=== PATIENT | male | born 1950 | race Caucasian/White ===

== ENCOUNTER 2016-09-06 15:21 | Emergency (ER) | payer MEDICARE, MEDICAID ==
[~2016-09-06] VITALS: Ht 182.9 cm; Wt 75.0 kg
[2016-09-06 15:27] VITALS: BP 129/107; PULSE 99; TEMP 98.5
[2016-09-06] MEDS ORDERED: BLOOD PRESSURE (15:29)
[2016-09-06] MEDS ORDERED: PEN-VEE K500 MG PO (16:01)
[2016-09-06] MEDS ORDERED: NORCO 325 MG-51 TAB PO (16:01)
== END 2016-09-06 16:09 | disposition home or self-care (01) ==
LOC: COL.ER 15:21
DX: K04.7 Periapical abscess without sinus (principal); K08.89 Other specified disorders of teeth and supporting structures; I10 Essential (primary) hypertension; F17.210 Nicotine dependence, cigarettes, uncomplicated

== ENCOUNTER 2016-10-04 13:57 | Emergency (ER) | payer MEDICARE, MEDICAID ==
[~2016-10-04] VITALS: Ht 182.9 cm; Wt 80.9 kg
[~2016-10-04 13:57] MED LIST: BLOOD PRESSURE; NORCO 325 MG-51 TAB PO; PEN-VEE K500 MG PO
[2016-10-04 15:21] LABS: BASO % 0.3 % (0.0-2.0); EOS % 0.3 % (0-4.0); GRAN # 6.7 (1.4-6.5); GRAN % 73.2 % (42.2-75.2); HEMATOCRIT 43.2 % (42.0-52.0); HEMOGLOBIN 14.8 g/dl (13.5-18.0); LYMPH # 1.3 (1.2-3.4); LYMPH % 14.1 % (20.0-51.0); MEAN CELL VOLUME 94 fl (80.0-100.0); MEAN CORPUSCULAR HEMOGLOBIN 32 pg (27.0-31.0); MEAN CORPUSCULAR HGB CONC 34 g/dl (33.0-37.0); MEAN PLATELET VOLUME 9.5 fl (7.4-10.4); MONO # 1.1 (0.1-0.6); MONO % 11.6 % (1.7-9.3); PLATELET COUNT 283 K/mm3 (130-400); RED BLOOD COUNT 4.59 M/mm3 (4.20-5.60); WHITE BLOOD COUNT 9.2 K/mm3 (4.8-10.8)
[2016-10-04 15:44] LABS: ADJUSTED CALCIUM 9.9 mg/dL (8.4-10.2); ALANINE AMINOTRANSFERASE 43 U/L (21-72); ALBUMIN 4.3 gm/dL (3.5-5.0); ALKALINE PHOSPHATASE 114 U/L (50-136); ANION GAP 14 mmol/L (7-16); BLOOD UREA NITROGEN 17 mg/dL (9-20); CALCIUM 10.1 mg/dL (8.4-10.2); CARBON DIOXIDE 40 mmol/L (22-30); CREATININE, serum 0.75 mg/dL (0.66-1.25); GLUCOSE 139 mg/dL (74-106); LIPASE 69 U/L (23-300); SODIUM 135 mmol/L (137-145); TOTAL PROTEIN 8.4 gm/dL (6.4-8.2)
[2016-10-04 15:52] LABS: INR 1.3 (0.8-3.0); PROTHROMBIN TIME 14.9 SECONDS (9.7-12.8)
[2016-10-04 15:53] LABS: CHLORIDE 81 mmol/L (98-107); POTASSIUM 2.9 mmol/L (3.4-5.0)
[2016-10-04 15:58] LABS: TROPONIN-I < 0.012 ng/mL (0.000-0.034)
[2016-10-04 16:29] LABS: pH GASTRIC CONTENTS 1
[2016-10-04 18:49] VITALS: BP 129/98; PULSE 79; TEMP 98.3
== END 2016-10-04 18:20 | disposition short-term general hospital (02) ==
LOC: COL.ER 13:57
PROVIDERS: Emergency Medicine
DX: K92.0 Hematemesis (principal); K92.2 Gastrointestinal hemorrhage, unspecified; R00.0 Tachycardia, unspecified; E87.6 Hypokalemia; I10 Essential (primary) hypertension; F17.210 Nicotine dependence, cigarettes, uncomplicated
CPT/HCPCS: C9113; J0696; J2354; J2405; J2550; J3480; J7030; J7040; Q9967

== ENCOUNTER 2016-10-24 16:51 | Inpatient (IN) | payer MEDICARE, MEDICAID ==
[2016-10-24] VITALS (115 sets, daily range): BP systolic 117–122; BP diastolic 74–78; PULSE 78–87; TEMP 97.7–97.9; O2SAT 82–100
[~2016-10-24] VITALS: Ht 182.9 cm; Wt 77.1 kg
[2016-10-24 17:18] LABS: BASO % 0.3 % (0.0-2.0); EOS % 0.1 % (0-4.0); GRAN # 6.6 (1.4-6.5); GRAN % 72.3 % (42.2-75.2); HEMATOCRIT 45.5 % (42.0-52.0); HEMOGLOBIN 15.2 g/dl (13.5-18.0); LYMPH # 1.4 (1.2-3.4); LYMPH % 15.1 % (20.0-51.0); MEAN CELL VOLUME 92 fl (80.0-100.0); MEAN CORPUSCULAR HEMOGLOBIN 31 pg (27.0-31.0); MEAN CORPUSCULAR HGB CONC 33 g/dl (33.0-37.0); MEAN PLATELET VOLUME 10.3 fl (7.4-10.4); MONO # 1.1 (0.1-0.6); MONO % 11.9 % (1.7-9.3); PLATELET COUNT 267 K/mm3 (130-400); RED BLOOD COUNT 4.93 M/mm3 (4.20-5.60); REDCELL DISTRIBUTION WIDTH-CV 12.4 % (11.5-14.5); WHITE BLOOD COUNT 9.1 K/mm3 (4.8-10.8)
[2016-10-24 17:22] LABS: INR 1.5 (0.8-3.0); PROTHROMBIN TIME 16.5 SECONDS (9.7-12.8)
[2016-10-24 17:28] LABS: BLOOD UREA NITROGEN 52 mg/dL (9-20); GLUCOSE 144 mg/dL (74-106); SODIUM 132 mmol/L (137-145)
[2016-10-24 17:29] LABS: ADJUSTED CALCIUM 8.8 mg/dL (8.4-10.2); ALANINE AMINOTRANSFERASE 30 U/L (21-72); ALBUMIN 4.3 gm/dL (3.5-5.0); ALKALINE PHOSPHATASE 118 U/L (50-136); BILIRUBIN,TOTAL 1.1 mg/dL (0.0-1.0); LIPASE 134 U/L (23-300); MAGNESIUM 2.2 mg/dL (1.6-2.3)
[2016-10-24 17:33] LABS: CHLORIDE 54 mmol/L (98-107); POTASSIUM 2.3 mmol/L (3.4-5.0)
[2016-10-24 17:36] LABS: ANION GAP 24 mmol/L (7-16); CARBON DIOXIDE 54 mmol/L (22-30)
[2016-10-24 18:05] LABS: VENOUS BLOOD GAS SAO2 48.9 % (60-80)
[2016-10-24 18:06] LABS: VENOUS BLOOD GAS SITE VENIPUNCTURE
[2016-10-24 18:16] LABS: POTASSIUM 2.1 mmol/L (3.4-5.0)
[2016-10-24] MEDS ORDERED: IPRATROPIUM BROM3 M1 IH (18:34)
[2016-10-24] MEDS ORDERED: PROTONIX 40MG T40 MG PO (18:35)
[2016-10-24] MEDS ORDERED: MULTIPLE VITAMI1 CAP PO (18:35)
[2016-10-24] MEDS ORDERED: FOLIC ACID 11 MG/TA1 PO (18:35)
[2016-10-24] MEDS ORDERED: NATURE'S BLEND100 M2 PO (18:36)
[2016-10-24 18:44] LABS: SALICYLATE < 1.0 mg/dL
[2016-10-24 19:39] LABS: PH 5 (5-8); SQUAMOUS EPITHELIAL 0-2 /hpf; URINE APPEARANCE Cloudy; URINE BACTERIA Rare /hpf; URINE BILIRUBIN Negative (NEGATIVE); URINE BLOOD 1+ (NEGATIVE); URINE COLOR Amber; URINE GLUCOSE Negative (NEGATIVE); URINE KETONE Negative (NEGATIVE)
[2016-10-24 19:56] LABS: PHOSPHOROUS 5.8 mg/dL (2.5-4.5)
[2016-10-24 20:01] LABS: AMPHETAMINE URINE NEGATIVE; BARBITURATES URINE NEGATIVE; BENZODIAZEPINES URINE NEGATIVE; BUPRENORPHINE URINE NEGATIVE; METHADONE URINE NEGATIVE; OPIATES URINE NEGATIVE; OXYCODONE URINE NEGATIVE; PHENCYCLIDINE URINE NEGATIVE; PROPOXYPHENE URINE NEGATIVE; THC CANNABINOIDS URINE NEGATIVE
[2016-10-24 20:04] LABS: PHOSPHOROUS 5.8 mg/dL (2.5-4.5)
[2016-10-24] MEDS ORDERED: PHENERGAN 25 TA25 MG PO ×2 (21:17)
[2016-10-24] MEDS ORDERED: ZOFRAN 4MG T4 MG/TAB PO (21:18)
[2016-10-25] VITALS (422 sets, daily range): BP systolic 97–123; BP diastolic 50–70; PULSE 67–75; TEMP 97.1–98.5; O2SAT 78–100
[2016-10-25 05:54] LABS: BASO % 0.5 % (0.0-2.0); EOS # 0.1 (0.0-0.7); EOS % 1.5 % (0-4.0); GRAN # 5.1 (1.4-6.5); LYMPH # 1.6 (1.2-3.4); LYMPH % 20.1 % (20.0-51.0); MEAN CELL VOLUME 94 fl (80.0-100.0); MEAN CORPUSCULAR HGB CONC 33 g/dl (33.0-37.0); MEAN PLATELET VOLUME 11.4 fl (7.4-10.4); MONO % 12.6 % (1.7-9.3); RED BLOOD COUNT 3.87 M/mm3 (4.20-5.60); REDCELL DISTRIBUTION WIDTH-CV 12.6 % (11.5-14.5); WHITE BLOOD COUNT 7.8 K/mm3 (4.8-10.8)
[2016-10-25 05:58] LABS: HEMATOCRIT 36.2 % (42.0-52.0); MEAN CORPUSCULAR HEMOGLOBIN 31 pg (27.0-31.0); PLATELET COUNT 155 K/mm3 (130-400)
[2016-10-25 06:07] LABS: CALCIUM 6.8 mg/dL (8.4-10.2); CREATININE, serum 1.43 mg/dL (0.66-1.25); POTASSIUM 3.2 mmol/L (3.4-5.0)
[2016-10-25 07:27] LABS: VENOUS BLOOD GAS BE 16.7 (-4-4); VENOUS BLOOD GAS SAO2 75.9 % (60-80)
[2016-10-25 07:28] LABS: VENOUS BLOOD GAS SITE VENIPUNCTURE
[2016-10-25 07:42] LABS: POTASSIUM 2.5 mmol/L (3.4-5.0)
[2016-10-25 09:22] LABS: MAGNESIUM 2.5 mg/dL (1.6-2.3)
[2016-10-26 03:43] VITALS: BP 107/66; PULSE 81; TEMP 98.1
[2016-10-26 07:18] LABS: BASO % 0.4 % (0.0-2.0); EOS # 0.2 (0.0-0.7); EOS % 2.1 % (0-4.0); GRAN # 5.2 (1.4-6.5); GRAN % 69.3 % (42.2-75.2); INR 1.3 (0.8-3.0); LYMPH # 1.3 (1.2-3.4); LYMPH % 17.7 % (20.0-51.0); MEAN CELL VOLUME 95 fl (80.0-100.0); MEAN CORPUSCULAR HGB CONC 32 g/dl (33.0-37.0); MEAN PLATELET VOLUME 10.6 fl (7.4-10.4); MONO # 0.7 (0.1-0.6); MONO % 9.8 % (1.7-9.3); PLATELET COUNT 172 K/mm3 (130-400); PROTHROMBIN TIME 14.3 SECONDS (9.7-12.8); RED BLOOD COUNT 3.79 M/mm3 (4.20-5.60); REDCELL DISTRIBUTION WIDTH-CV 12.5 % (11.5-14.5); WHITE BLOOD COUNT 7.5 K/mm3 (4.8-10.8)
[2016-10-26 07:32] LABS: CALCIUM 7.3 mg/dL (8.4-10.2); CREATININE, serum 0.78 mg/dL (0.66-1.25); MAGNESIUM 2.2 mg/dL (1.6-2.3); POTASSIUM 3.8 mmol/L (3.4-5.0)
[2016-10-26 07:47] VITALS: BP 105/68; PULSE 79; TEMP 98.2
[2016-10-26 07:49] LABS: HEMATOCRIT 35.9 % (42.0-52.0); HEMOGLOBIN 11.5 g/dl (13.5-18.0); MEAN CORPUSCULAR HEMOGLOBIN 30 pg (27.0-31.0)
[2016-10-26 11:41] VITALS: BP 106/68; PULSE 84; TEMP 97.7
[2016-10-26 16:47] VITALS: BP 116/73; PULSE 93; TEMP 98
[2016-10-26 19:16] VITALS: BP 129/69; PULSE 92; TEMP 98.4
[2016-10-26 22:52] VITALS: BP 99/53; PULSE 91; TEMP 97.5
[2016-10-27 03:02] VITALS: BP 105/66; PULSE 88; TEMP 98.4
[2016-10-27 05:56] LABS: BASO % 0.4 % (0.0-2.0); EOS # 0.2 (0.0-0.7); EOS % 2.3 % (0-4.0); GRAN # 4.3 (1.4-6.5); GRAN % 62.1 % (42.2-75.2); LYMPH # 1.5 (1.2-3.4); LYMPH % 22.3 % (20.0-51.0); MEAN CELL VOLUME 94 fl (80.0-100.0); MEAN CORPUSCULAR HGB CONC 33 g/dl (33.0-37.0); MEAN PLATELET VOLUME 10.1 fl (7.4-10.4); MONO # 0.8 (0.1-0.6); PLATELET COUNT 164 K/mm3 (130-400); RED BLOOD COUNT 3.69 M/mm3 (4.20-5.60); REDCELL DISTRIBUTION WIDTH-CV 12.4 % (11.5-14.5); WHITE BLOOD COUNT 6.9 K/mm3 (4.8-10.8)
[2016-10-27 06:06] LABS: HEMATOCRIT 34.7 % (42.0-52.0); HEMOGLOBIN 11.4 g/dl (13.5-18.0); MEAN CORPUSCULAR HEMOGLOBIN 31 pg (27.0-31.0)
[2016-10-27 06:32] LABS: ADJUSTED CALCIUM 9.1 mg/dL (8.4-10.2); ALBUMIN 2.6 gm/dL (3.5-5.0); BILIRUBIN,TOTAL 0.7 mg/dL (0.0-1.0); CREATININE, serum 0.73 mg/dL (0.66-1.25); POTASSIUM 3.6 mmol/L (3.4-5.0); TOTAL PROTEIN 5.8 gm/dL (6.4-8.2)
[2016-10-27 08:38] VITALS: BP 118/73; PULSE 94; TEMP 98.8
[2016-10-27 11:06] VITALS: BP 115/72; PULSE 88; TEMP 98.2
[2016-10-27] MEDS ORDERED: MULTIPLE VITAMI1 CAP PO (11:45)
[2016-10-27] MEDS ORDERED: MIRALAX PA17 GM/Dose PO (11:45)
[2016-10-27] MEDS ORDERED: NATURE'S BLEND100 M2 PO (11:45)
[2016-10-27] MEDS ORDERED: PROTONIX 40MG T40 MG PO (11:46)
[2016-10-27] MEDS ORDERED: CARAFATE S1 GM/10 ML PO (11:51)
[2016-10-27] MEDS ORDERED: ZOFRAN 4MG T4 MG/TAB PO (11:51)
== END 2016-10-27 15:06 | disposition home or self-care (01) | DRG 641 ==
LOC: COL.ER 16:51 → ICU 17:36 → MEDICAL 17:36 → IMCU 18:46 → ICU 19:41 → MEDICAL 10-25 19:46
PROVIDERS: Emergency Medicine; Family Medicine; Internal Medicine Gastroenterology; Nurse Practitioner Family
PROC: 0DJ08ZZ Inspection of Upper Intestinal Tract, Via Natural or Artificial Opening Endoscopic (ICD-10-PCS; principal; 2016-10-25 16:15)
DX: E87.3 Alkalosis (principal); N17.9 Acute kidney failure, unspecified; Z66 Do not resuscitate; K21.0 Gastro-esophageal reflux disease with esophagitis; K22.8 Other specified diseases of esophagus; K52.9 Noninfective gastroenteritis and colitis, unspecified; E87.1 Hypo-osmolality and hyponatremia; J44.9 Chronic obstructive pulmonary disease, unspecified; E87.6 Hypokalemia; K70.31 Alcoholic cirrhosis of liver with ascites; F10.10 Alcohol abuse, uncomplicated; F17.210 Nicotine dependence, cigarettes, uncomplicated; K29.20 Alcoholic gastritis without bleeding
CPT/HCPCS: 99223-AI; 99232-AI; 99239; C1751; C9113; J0696; J1644; J1650; J2250; J2405; J2550; J3010; J3411; J3475; J3480; J7030

== ENCOUNTER 2016-10-31 15:22 | Observation (INO) | payer MEDICARE, MEDICAID ==
[~2016-10-31] VITALS: Ht 177.8 cm; Wt 77.6 kg
[~2016-10-31 15:22] MED LIST changes: +CARAFATE S1 GM/10 ML PO; +FOLIC ACID 11 MG/TA1 PO; +IPRATROPIUM BROM3 M1 IH; +MIRALAX PA17 GM/Dose PO; +MULTIPLE VITAMI1 CAP PO; +NATURE'S BLEND100 M2 PO; +PHENERGAN 25 TA25 MG PO; +PROTONIX 40MG T40 MG PO; +ZOFRAN 4MG T4 MG/TAB PO
[2016-10-31 16:23] LABS: BASO % 0.4 % (0.0-2.0); EOS # 0.1 (0.0-0.7); EOS % 1.6 % (0-4.0); GRAN # 5.5 (1.4-6.5); GRAN % 67.7 % (42.2-75.2); HEMATOCRIT 37.9 % (42.0-52.0); HEMOGLOBIN 12.6 g/dl (13.5-18.0); LYMPH # 1.3 (1.2-3.4); LYMPH % 15.8 % (20.0-51.0); MEAN CELL VOLUME 92 fl (80.0-100.0); MEAN CORPUSCULAR HEMOGLOBIN 31 pg (27.0-31.0); MEAN CORPUSCULAR HGB CONC 33 g/dl (33.0-37.0); MONO # 1.1 (0.1-0.6); MONO % 14.1 % (1.7-9.3); PLATELET COUNT 174 K/mm3 (130-400); RED BLOOD COUNT 4.12 M/mm3 (4.20-5.60); WHITE BLOOD COUNT 8.1 K/mm3 (4.8-10.8)
[2016-10-31 16:27] LABS: INR 1.3 (0.8-3.0); PROTHROMBIN TIME 14.3 SECONDS (9.7-12.8)
[2016-10-31 16:30] LABS: PARTIAL THROMBOPLASTIN TIME 30.6 SECONDS (26.0-37.0)
[2016-10-31 17:01] LABS: ADJUSTED CALCIUM 9.8 mg/dL (8.4-10.2); ALANINE AMINOTRANSFERASE 21 U/L (21-72); ALBUMIN 3.3 gm/dL (3.5-5.0); ALKALINE PHOSPHATASE 133 U/L (50-136); ANION GAP 14 mmol/L (7-16); BLOOD UREA NITROGEN 17 mg/dL (9-20); CALCIUM 9.2 mg/dL (8.4-10.2); CARBON DIOXIDE 25 mmol/L (22-30); CHLORIDE 96 mmol/L (98-107); CREATININE, serum 0.79 mg/dL (0.66-1.25); GLUCOSE 115 mg/dL (74-106); LIPASE 83 U/L (23-300); POTASSIUM 3.3 mmol/L (3.4-5.0); SODIUM 135 mmol/L (137-145); TOTAL PROTEIN 7.2 gm/dL (6.4-8.2)
[2016-10-31 17:19] LABS: AMMONIA < 9 umol/L (11-35)
[2016-10-31 17:20] LABS: TROPONIN-I < 0.012 ng/mL (0.000-0.034)
[2016-10-31 17:55] LABS: PH 5 (5-8); SQUAMOUS EPITHELIAL None Seen /hpf; URINE APPEARANCE Clear; URINE BACTERIA None Seen /hpf; URINE BILIRUBIN Negative (NEGATIVE); URINE BLOOD Negative (NEGATIVE); URINE COLOR Amber; URINE GLUCOSE Negative (NEGATIVE); URINE KETONE Trace (NEGATIVE); URINE RBC 0-2 /hpf; URINE WBC 0-2 /hpf
[2016-10-31 20:06] VITALS: BP 138/84; PULSE 98; TEMP 98.2
[2016-10-31 22:05] VITALS: BP 132/72; PULSE 82; TEMP 98.9
[2016-11-01 03:37] VITALS: BP 122/78; PULSE 101; TEMP 98.5
[2016-11-01 06:50] LABS: BASO % 0.3 % (0.0-2.0); EOS # 0.1 (0.0-0.7); EOS % 1.9 % (0-4.0); GRAN # 4.3 (1.4-6.5); GRAN % 66.5 % (42.2-75.2); LYMPH # 1.1 (1.2-3.4); LYMPH % 16.6 % (20.0-51.0); MEAN CELL VOLUME 92 fl (80.0-100.0); MEAN CORPUSCULAR HGB CONC 33 g/dl (33.0-37.0); MEAN PLATELET VOLUME 9.9 fl (7.4-10.4); MONO # 0.9 (0.1-0.6); MONO % 14.2 % (1.7-9.3); PLATELET COUNT 163 K/mm3 (130-400); RED BLOOD COUNT 3.67 M/mm3 (4.20-5.60); REDCELL DISTRIBUTION WIDTH-CV 13.2 % (11.5-14.5); WHITE BLOOD COUNT 6.5 K/mm3 (4.8-10.8)
[2016-11-01 07:00] LABS: CALCIUM 8.7 mg/dL (8.4-10.2); CREATININE, serum 0.72 mg/dL (0.66-1.25); POTASSIUM 3.4 mmol/L (3.4-5.0)
[2016-11-01 07:01] LABS: HEMATOCRIT 33.8 % (42.0-52.0); HEMOGLOBIN 11.2 g/dl (13.5-18.0); MEAN CORPUSCULAR HEMOGLOBIN 31 pg (27.0-31.0)
[2016-11-01 08:55] VITALS: BP 119/74; PULSE 94; TEMP 98
[2016-11-01 12:50] VITALS: BP 129/73; PULSE 97; TEMP 98.4
[2016-11-01 14:26] LABS: PERITONEAL -POLYMORPHONUCLEAR 37.1 % (0-25); PERITONEAL FLUID RBC 1000 /mm3 (0-0)
[2016-11-01] MEDS ORDERED: CIPRO 500MG TA500 MG PO (15:50)
[2016-11-01] MEDS ORDERED: ALDACTONE 100M100 MG PO (15:50)
[2016-11-01] MEDS ORDERED: LASIX 40MG TABL40 MG PO (15:51)
[2016-11-04 17:34] LABS: ALPHA 1 ANTITRYPSIN TOTAL 319 mg/dL (())
[2016-11-05 01:10] LABS: ANA SCREEN with REFLEX Negative (Negative)
== END 2016-11-01 16:50 | disposition home or self-care (01) ==
LOC: COL.ER 15:22 → MEDICAL 17:38
PROVIDERS: Emergency Medicine; Family Medicine; Internal Medicine Gastroenterology
DX: K70.31 Alcoholic cirrhosis of liver with ascites (principal); I85.10 Secondary esophageal varices without bleeding; F17.210 Nicotine dependence, cigarettes, uncomplicated; J44.9 Chronic obstructive pulmonary disease, unspecified; E87.6 Hypokalemia
CPT/HCPCS: G0378; J2405

== ENCOUNTER → 2016-11-08 | Outpatient (CLI) | payer MEDICARE, MEDICAID ==
[~2016-11-08] MED LIST changes: +ALDACTONE 100M100 MG PO; +ATIVAN 1MG T1 MG/TAB PO; +CIPRO 500MG TA500 MG PO; +DULCOLAX S10 MG/SUPP RC; +LASIX 40MG TABL40 MG PO; +PHENERGAN50 MG/SUPP RC; +REGLAN 10MG10 MG/TAB PO; +ROXANOL 20MG20 MG/ML PO
[2016-11-08 15:52] LABS: ADJUSTED CALCIUM 9.5 mg/dL (8.4-10.2); ALBUMIN 3.2 gm/dL (3.5-5.0); CALCIUM 8.9 mg/dL (8.4-10.2); CREATININE, serum 1.1 mg/dL (0.66-1.25); TOTAL PROTEIN 7.2 gm/dL (6.4-8.2)
[2016-11-08 16:05] LABS: POTASSIUM 2.8 mmol/L (3.4-5.0)
== END ==
LOC: COL.LAB 14:10
PROVIDERS: Internal Medicine Gastroenterology
DX: K70.31 Alcoholic cirrhosis of liver with ascites (principal)

== ENCOUNTER 2016-11-14 15:40 | Inpatient (IN) | payer MEDICARE, MEDICAID ==
[2016-11-14] VITALS (58 sets, daily range): BP systolic 92–93; BP diastolic 61–68; PULSE 86; TEMP 97.4; O2SAT 86–95
[~2016-11-14] VITALS: Ht 177.8 cm; Wt 76.8 kg
[~2016-11-14 15:40] MED LIST changes: -ATIVAN 1MG T1 MG/TAB PO; -DULCOLAX S10 MG/SUPP RC; -PHENERGAN50 MG/SUPP RC; -REGLAN 10MG10 MG/TAB PO; -ROXANOL 20MG20 MG/ML PO
[2016-11-14 16:14] LABS: BASO % 0.4 % (0.0-2.0); EOS % 0.4 % (0-4.0); GRAN # 8.1 (1.4-6.5); HEMATOCRIT 40.8 % (42.0-52.0); LYMPH # 1.3 (1.2-3.4); LYMPH % 12.5 % (20.0-51.0); MEAN CELL VOLUME 88 fl (80.0-100.0); MEAN CORPUSCULAR HEMOGLOBIN 30 pg (27.0-31.0); MEAN CORPUSCULAR HGB CONC 34 g/dl (33.0-37.0); MEAN PLATELET VOLUME 9.4 fl (7.4-10.4); MONO # 1.1 (0.1-0.6); PLATELET COUNT 302 K/mm3 (130-400); RED BLOOD COUNT 4.63 M/mm3 (4.20-5.60); REDCELL DISTRIBUTION WIDTH-CV 13.2 % (11.5-14.5); WHITE BLOOD COUNT 10.6 K/mm3 (4.8-10.8)
[2016-11-14 16:26] LABS: INR 1.4 (0.8-3.0); PROTHROMBIN TIME 15.3 SECONDS (9.7-12.8)
[2016-11-14 16:29] LABS: PARTIAL THROMBOPLASTIN TIME 29.9 SECONDS (26.0-37.0)
[2016-11-14 16:42] LABS: ALBUMIN 3.5 gm/dL (3.5-5.0); BILIRUBIN,TOTAL 1.2 mg/dL (0.0-1.0); C-REACTIVE PROTEIN 8.9 mg/dL (0.0-0.9); CALCIUM 8.6 mg/dL (8.4-10.2); CREATININE, serum 2.47 mg/dL (0.66-1.25); TOTAL PROTEIN 7.8 gm/dL (6.4-8.2)
[2016-11-14 17:08] LABS: TROPONIN-I 0.056 ng/mL (0.000-0.034)
[2016-11-15] VITALS (250 sets, daily range): BP systolic 95–107; BP diastolic 60–68; PULSE 76–92; TEMP 97–98.7; O2SAT 79–96
[2016-11-15 06:16] LABS: BASO % 0.5 % (0.0-2.0); EOS # 0.1 (0.0-0.7); EOS % 1.1 % (0-4.0); GRAN # 5.8 (1.4-6.5); GRAN % 73.8 % (42.2-75.2); LYMPH # 1.1 (1.2-3.4); LYMPH % 14.3 % (20.0-51.0); MEAN CELL VOLUME 88 fl (80.0-100.0); MEAN CORPUSCULAR HGB CONC 33 g/dl (33.0-37.0); MEAN PLATELET VOLUME 9.4 fl (7.4-10.4); MONO # 0.8 (0.1-0.6); MONO % 9.7 % (1.7-9.3); PLATELET COUNT 233 K/mm3 (130-400); RED BLOOD COUNT 3.79 M/mm3 (4.20-5.60); REDCELL DISTRIBUTION WIDTH-CV 13.2 % (11.5-14.5); WHITE BLOOD COUNT 7.8 K/mm3 (4.8-10.8)
[2016-11-15 06:22] LABS: HEMATOCRIT 33.5 % (42.0-52.0); HEMOGLOBIN 11.2 g/dl (13.5-18.0); MEAN CORPUSCULAR HEMOGLOBIN 30 pg (27.0-31.0)
[2016-11-15 06:30] LABS: CALCIUM 7.1 mg/dL (8.4-10.2); CREATININE, serum 1.75 mg/dL (0.66-1.25); POTASSIUM 3.1 mmol/L (3.4-5.0)
[2016-11-15 07:07] LABS: PH 5 (5-8); URINE APPEARANCE Hazy; URINE BILIRUBIN Negative (NEGATIVE); URINE BLOOD Negative (NEGATIVE); URINE COLOR Amber; URINE GLUCOSE Negative (NEGATIVE); URINE KETONE Negative (NEGATIVE); URINE UROBILINOGEN >=4.0 mg/dL (NEGATIVE)
[2016-11-15 07:11] LABS: SQUAMOUS EPITHELIAL 0-2 /hpf; URINE BACTERIA Rare /hpf; URINE RBC 0-2 /hpf
[2016-11-15 18:33] LABS: CALCIUM 7.4 mg/dL (8.4-10.2); CREATININE, serum 1.26 mg/dL (0.66-1.25); POTASSIUM 3.7 mmol/L (3.4-5.0)
[2016-11-16 03:58] VITALS: BP 101/63; PULSE 94; TEMP 98
[2016-11-16 08:03] LABS: MAGNESIUM 1.6 mg/dL (1.6-2.3); POTASSIUM 4.3 mmol/L (3.4-5.0)
[2016-11-16 09:51] VITALS: BP 103/71; PULSE 89; TEMP 98.3
[2016-11-16 12:14] VITALS: BP 103/69; PULSE 87; TEMP 98.5
[2016-11-16 16:56] VITALS: BP 116/67; PULSE 94; TEMP 98.2
[2016-11-16 19:40] VITALS: BP 118/68; PULSE 92; TEMP 98.2
[2016-11-16 23:22] VITALS: BP 108/72; PULSE 99; TEMP 99
[2016-11-17 03:28] VITALS: BP 121/77; PULSE 95; TEMP 98.1
[2016-11-17 07:48] VITALS: BP 110/74; PULSE 96; TEMP 97.5
[2016-11-17 08:50] LABS: CREATININE, serum 0.75 mg/dL (0.66-1.25); POTASSIUM 3.9 mmol/L (3.4-5.0)
[2016-11-17 11:38] VITALS: BP 120/81; PULSE 103; TEMP 97.9
[2016-11-17 15:11] VITALS: BP 129/62; PULSE 106; TEMP 98.3
[2016-11-17 19:13] VITALS: BP 139/91; PULSE 99; TEMP 98.5
[2016-11-17 23:22] VITALS: BP 131/74; PULSE 102; TEMP 97.7
[2016-11-18 02:58] VITALS: BP 128/79; PULSE 98; TEMP 98.1
[2016-11-18 07:20] LABS: CALCIUM 7.9 mg/dL (8.4-10.2); CREATININE, serum 0.71 mg/dL (0.66-1.25)
[2016-11-18 07:58] VITALS: BP 127/82; PULSE 113; TEMP 97.4
[2016-11-18 11:35] VITALS: BP 112/80; PULSE 100; TEMP 98.4
[2016-11-18] MEDS ORDERED: PHENERGAN 25 TA25 MG PO (13:45)
== END 2016-11-18 17:11 | disposition home or self-care (01) | DRG 682 ==
LOC: COL.ER 15:40 → IMCU 17:30 → MEDICAL 11-15 11:30
PROVIDERS: Emergency Medicine; Family Medicine; Internal Medicine
PROC: 0W9G3ZZ Drainage of Peritoneal Cavity, Percutaneous Approach (ICD-10-PCS; principal; 2016-11-18)
DX: N17.9 Acute kidney failure, unspecified (principal); E43 Unspecified severe protein-calorie malnutrition; E87.1 Hypo-osmolality and hyponatremia; E87.6 Hypokalemia; K70.31 Alcoholic cirrhosis of liver with ascites; J42 Unspecified chronic bronchitis; F10.10 Alcohol abuse, uncomplicated; K72.90 Hepatic failure, unspecified without coma; F17.210 Nicotine dependence, cigarettes, uncomplicated
CPT/HCPCS: 99222-AI; 99232-AI; 99233-AI; 99239; J2405; J3480; J7030; J7131

== ENCOUNTER → 2016-11-22 | Outpatient (CLI) | payer MEDICARE, MEDICAID ==
[~2016-11-22] VITALS: Ht 177.8 cm; Wt 70.5 kg
[~2016-11-22] MED LIST changes: +ATIVAN 1MG T1 MG/TAB PO; +DULCOLAX S10 MG/SUPP RC; +PHENERGAN50 MG/SUPP RC; +REGLAN 10MG10 MG/TAB PO; +ROXANOL 20MG20 MG/ML PO
[2016-11-22 10:02] VITALS: BP 94/69; PULSE 126
[2016-11-22 10:15] LABS: CALCIUM 8.6 mg/dL (8.4-10.2); CREATININE, serum 0.9 mg/dL (0.66-1.25); POTASSIUM 4.2 mmol/L (3.4-5.0)
[2016-11-22 12:05] VITALS: BP 90/65; PULSE 113
[2016-11-22 12:30] LABS: PERITONEAL -POLYMORPHONUCLEAR 39.5 % (0-25); PERITONEAL FLUID RBC 1000 /mm3 (0-0)
== END ==
LOC: COL.RAD 09:32
PROVIDERS: Internal Medicine Gastroenterology
DX: K70.31 Alcoholic cirrhosis of liver with ascites (principal)

== ENCOUNTER 2016-11-25 16:31 | Inpatient (IN) | payer MEDICARE, MEDICAID ==
[2016-11-25] VITALS (168 sets, daily range): BP systolic 95; BP diastolic 68; PULSE 102; TEMP 97.1; O2SAT 80–98
[~2016-11-25] VITALS: Ht 177.8 cm; Wt 67.1 kg
[~2016-11-25 16:31] MED LIST changes: -ATIVAN 1MG T1 MG/TAB PO; -DULCOLAX S10 MG/SUPP RC; -PHENERGAN50 MG/SUPP RC; -REGLAN 10MG10 MG/TAB PO; -ROXANOL 20MG20 MG/ML PO
[2016-11-25 17:22] LABS: BASO % 0.2 % (0.0-2.0); EOS % 0.1 % (0-4.0); GRAN # 11.9 (1.4-6.5); GRAN % 81.5 % (42.2-75.2); HEMATOCRIT 34.4 % (42.0-52.0); HEMOGLOBIN 11.9 g/dl (13.5-18.0); LYMPH # 1.6 (1.2-3.4); LYMPH % 10.9 % (20.0-51.0); MEAN CELL VOLUME 86 fl (80.0-100.0); MEAN CORPUSCULAR HEMOGLOBIN 30 pg (27.0-31.0); MEAN CORPUSCULAR HGB CONC 35 g/dl (33.0-37.0); MEAN PLATELET VOLUME 9.8 fl (7.4-10.4); MONO % 6.7 % (1.7-9.3); PLATELET COUNT 249 K/mm3 (130-400); RED BLOOD COUNT 4.02 M/mm3 (4.20-5.60); REDCELL DISTRIBUTION WIDTH-CV 13.6 % (11.5-14.5); WHITE BLOOD COUNT 14.5 K/mm3 (4.8-10.8)
[2016-11-25 17:24] LABS: INR 1.5 (0.8-3.0); PROTHROMBIN TIME 17.2 SECONDS (9.7-12.8)
[2016-11-25 17:29] LABS: ADJUSTED CALCIUM 9.2 mg/dL (8.4-10.2); ALBUMIN 2.8 gm/dL (3.5-5.0); BILIRUBIN,TOTAL 1.1 mg/dL (0.0-1.0); CALCIUM 8.2 mg/dL (8.4-10.2); CREATININE, serum 1.38 mg/dL (0.66-1.25); TOTAL PROTEIN 6.8 gm/dL (6.4-8.2)
[2016-11-25 17:31] LABS: POTASSIUM 2.7 mmol/L (3.4-5.0)
[2016-11-25 18:08] LABS: ARTERIAL BLD GAS O2 SATURATION 91.4 % (92-100); ARTERIAL BLD GAS TCO2 CT 45.2; ARTERIAL BLOOD GAS BASE EXCESS 20.2 (-2-2); ARTERIAL BLOOD GAS HCO3 43.8 meq/L (22-26); ARTERIAL BLOOD GAS PHT 7.61 C (7.35-7.45); ARTERIAL BLOOD GAS PO2 59.5 mmHg (80-100); ARTERIAL BLOOD GAS PO2T 59.5 (80-100); OXYHEMOGLOBIN 89.3 %
[2016-11-25 18:09] LABS: ARTERIAL BLOOD GAS pH 7.61 (7.35-7.45)
[2016-11-25 18:10] LABS: ATS? YES
[2016-11-25 19:05] LABS: MAGNESIUM 1.8 mg/dL (1.6-2.3); PHOSPHOROUS 5.1 mg/dL (2.5-4.5)
[2016-11-26] VITALS (591 sets, daily range): BP systolic 89–97; BP diastolic 59–73; PULSE 84–98; TEMP 97.1–98.1; O2SAT 69–100
[2016-11-26 05:26] LABS: BASO % 0.2 % (0.0-2.0); EOS # 0.1 (0.0-0.7); EOS % 0.5 % (0-4.0); GRAN # 8.5 (1.4-6.5); GRAN % 75.8 % (42.2-75.2); LYMPH # 1.7 (1.2-3.4); LYMPH % 15.1 % (20.0-51.0); MEAN CELL VOLUME 87 fl (80.0-100.0); MEAN CORPUSCULAR HGB CONC 34 g/dl (33.0-37.0); MEAN PLATELET VOLUME 9.4 fl (7.4-10.4); MONO # 0.9 (0.1-0.6); MONO % 7.8 % (1.7-9.3); PLATELET COUNT 203 K/mm3 (130-400); RED BLOOD COUNT 3.28 M/mm3 (4.20-5.60); REDCELL DISTRIBUTION WIDTH-CV 13.9 % (11.5-14.5); WHITE BLOOD COUNT 11.2 K/mm3 (4.8-10.8)
[2016-11-26 05:27] LABS: HEMATOCRIT 28.5 % (42.0-52.0); HEMOGLOBIN 9.7 g/dl (13.5-18.0); MEAN CORPUSCULAR HEMOGLOBIN 30 pg (27.0-31.0)
[2016-11-26 05:57] LABS: BLOOD UREA NITROGEN 52 mg/dL (9-20); CALCIUM 7.4 mg/dL (8.4-10.2); CREATININE, serum 1.57 mg/dL (0.66-1.25); GLUCOSE 104 mg/dL (74-106); SODIUM 123 mmol/L (137-145)
[2016-11-26 06:02] LABS: CARBON DIOXIDE 40 mmol/L (22-30); CHLORIDE 71 mmol/L (98-107)
[2016-11-26 10:32] LABS: ARTERIAL BLD GAS O2 SATURATION 96.8 % (92-100); ARTERIAL BLD GAS TCO2 CT 46.9; ARTERIAL BLOOD GAS BASE EXCESS 20.2 (-2-2); ARTERIAL BLOOD GAS HCO3 45.2 meq/L (22-26); ARTERIAL BLOOD GAS PHT 7.55 C (7.35-7.45); ARTERIAL BLOOD GAS PO2 95.3 mmHg (80-100); ARTERIAL BLOOD GAS PO2T 95.3 (80-100); ARTERIAL BLOOD GAS pH 7.55 (7.35-7.45)
[2016-11-26 10:33] LABS: ATS? YES
[2016-11-26 13:07] LABS: PERITONEAL -POLYMORPHONUCLEAR 37.3 % (0-25); PERITONEAL FLUID RBC 2000 /mm3 (0-0)
[2016-11-26 15:20] LABS: CALCIUM 7.2 mg/dL (8.4-10.2); CREATININE, serum 1.51 mg/dL (0.66-1.25); POTASSIUM 3.3 mmol/L (3.4-5.0)
[2016-11-26 18:21] LABS: PH 7 (5-8); SQUAMOUS EPITHELIAL None Seen /hpf; URINE APPEARANCE Clear; URINE BACTERIA None Seen /hpf; URINE BILIRUBIN Negative (NEGATIVE); URINE BLOOD Negative (NEGATIVE); URINE COLOR Yellow; URINE GLUCOSE Negative (NEGATIVE); URINE KETONE Negative (NEGATIVE); URINE RBC 0-2 /hpf; URINE WBC 0-2 /hpf
[2016-11-27] VITALS (215 sets, daily range): BP systolic 88–101; BP diastolic 57–71; PULSE 84–109; TEMP 97.5–98.5; O2SAT 72–97
[2016-11-27 05:58] LABS: CALCIUM 7.1 mg/dL (8.4-10.2); CREATININE, serum 1.37 mg/dL (0.66-1.25)
[2016-11-27 12:03] LABS: ARTERIAL BLD GAS O2 SATURATION 93.4 % (92-100); ARTERIAL BLD GAS TCO2 CT 38.1; ARTERIAL BLOOD GAS HCO3 36.6 meq/L (22-26); ARTERIAL BLOOD GAS PO2 69.5 mmHg (80-100); OXYHEMOGLOBIN 92.7 %
[2016-11-27 12:04] LABS: ATS? YES
[2016-11-28 04:01] VITALS: BP 98/50; PULSE 88; TEMP 98
[2016-11-28 07:45] VITALS: BP 92/59; PULSE 96; TEMP 98.5
[2016-11-28 08:08] LABS: ADJUSTED CALCIUM 8.5 mg/dL (8.4-10.2); ALBUMIN 1.9 gm/dL (3.5-5.0); BILIRUBIN,TOTAL 0.9 mg/dL (0.0-1.0); CALCIUM 6.8 mg/dL (8.4-10.2); CREATININE, serum 1.22 mg/dL (0.66-1.25); POTASSIUM 3.5 mmol/L (3.4-5.0)
[2016-11-28 08:12] LABS: INR 1.2 (0.8-3.0); PROTHROMBIN TIME 12.8 SECONDS (9.7-12.8)
[2016-11-28 08:15] LABS: BASO % 0.2 % (0.0-2.0); EOS # 0.1 (0.0-0.7); EOS % 0.7 % (0-4.0); GRAN # 8.9 (1.4-6.5); GRAN % 79.6 % (42.2-75.2); LYMPH # 1.3 (1.2-3.4); LYMPH % 11.2 % (20.0-51.0); MEAN CELL VOLUME 88 fl (80.0-100.0); MEAN CORPUSCULAR HGB CONC 33 g/dl (33.0-37.0); MEAN PLATELET VOLUME 9.9 fl (7.4-10.4); MONO # 0.8 (0.1-0.6); MONO % 7.5 % (1.7-9.3); PARTIAL THROMBOPLASTIN TIME 28.7 SECONDS (26.0-37.0); PLATELET COUNT 205 K/mm3 (130-400); RED BLOOD COUNT 3.26 M/mm3 (4.20-5.60); REDCELL DISTRIBUTION WIDTH-CV 14.4 % (11.5-14.5); WHITE BLOOD COUNT 11.2 K/mm3 (4.8-10.8)
[2016-11-28 08:24] LABS: HEMATOCRIT 28.7 % (42.0-52.0); HEMOGLOBIN 9.6 g/dl (13.5-18.0); MEAN CORPUSCULAR HEMOGLOBIN 29 pg (27.0-31.0)
[2016-11-28 09:54] VITALS: BP 98/60; PULSE 99; TEMP 97.3
[2016-11-28 11:43] VITALS: BP 86/61; PULSE 93; TEMP 98.1
[2016-11-28 15:57] VITALS: BP 90/59; PULSE 98; TEMP 98.4
[2016-11-28 20:44] VITALS: BP 91/60; PULSE 104; TEMP 98.2
[2016-11-29] VITALS (7 sets, daily range): BP systolic 89–112; BP diastolic 55–75; PULSE 57–122; TEMP 97.7–98.6
[2016-11-29 10:40] LABS: CALCIUM 7.3 mg/dL (8.4-10.2); CREATININE, serum 1.08 mg/dL (0.66-1.25); POTASSIUM 4.8 mmol/L (3.4-5.0)
[2016-11-30 04:19] VITALS: BP 100/68; PULSE 110; TEMP 97.6
[2016-11-30 08:02] VITALS: BP 102/63; PULSE 68; TEMP 97.5
[2016-11-30 12:06] VITALS: BP 98/66; PULSE 108; TEMP 98.7
[2016-11-30 17:36] VITALS: BP 95/67; PULSE 121; TEMP 97.8
[2016-11-30 19:29] VITALS: BP 98/61; PULSE 121; TEMP 97.9
[2016-11-30 23:47] VITALS: BP 103/64; PULSE 118; TEMP 97.6
[2016-12-01 04:31] VITALS: BP 89/59; PULSE 118; TEMP 97.6
[2016-12-01 07:27] LABS: CALCIUM 7.6 mg/dL (8.4-10.2); CREATININE, serum 1.4 mg/dL (0.66-1.25); POTASSIUM 4.8 mmol/L (3.4-5.0)
[2016-12-01 08:10] VITALS: BP 98/63; PULSE 120; TEMP 98.3
[2016-12-01 11:49] VITALS: BP 96/69; PULSE 115; TEMP 97.8
[2016-12-01 16:10] VITALS: BP 92/60; PULSE 116; TEMP 98.3
[2016-12-01 19:15] VITALS: BP 99/64; PULSE 112; TEMP 98.7
[2016-12-01 23:41] VITALS: BP 99/61; PULSE 119; TEMP 98.5
[2016-12-02 03:38] VITALS: BP 99/70; PULSE 115; TEMP 98.5
[2016-12-02 08:09] VITALS: BP 87/61; PULSE 115; TEMP 97.7
[2016-12-02 09:59] LABS: INR 1.1 (0.8-3.0); PROTHROMBIN TIME 12.4 SECONDS (9.7-12.8)
[2016-12-02 10:02] LABS: PARTIAL THROMBOPLASTIN TIME 28.6 SECONDS (26.0-37.0)
[2016-12-02 12:10] VITALS: BP 102/69; PULSE 117; TEMP 97.8
[2016-12-02] MEDS ORDERED: PROTONIX 40MG T40 MG PO (14:19)
[2016-12-02] MEDS ORDERED: PHENERGAN50 MG/SUPP RC (14:21)
[2016-12-02] MEDS ORDERED: REGLAN 10MG10 MG/TAB PO (14:22)
[2016-12-02] MEDS ORDERED: DULCOLAX S10 MG/SUPP RC (14:24)
[2016-12-02] MEDS ORDERED: ROXANOL 20MG20 MG/ML PO (14:25)
[2016-12-02] MEDS ORDERED: ATIVAN 1MG T1 MG/TAB PO (14:25)
[2016-12-02 15:39] VITALS: BP 102/79; PULSE 130; TEMP 98.2
== END 2016-12-02 20:01 | disposition hospice, home (50) | DRG 432 ==
LOC: COL.ER 16:31 → IMCU 18:17 → ICU 18:17 → MEDICAL 18:17 → IMCU 11-26 12:10 → MEDICAL 11-27 17:27
PROVIDERS: Family Medicine; Internal Medicine; Internal Medicine Gastroenterology; Legal Medicine; Nurse Practitioner Family
PROC: 0W9G3ZX Drainage of Peritoneal Cavity, Percutaneous Approach, Diagnostic (ICD-10-PCS; principal; 2016-11-26)
PROC: 0DB68ZX Excision of Stomach, Via Natural or Artificial Opening Endoscopic, Diagnostic (ICD-10-PCS; 2016-11-28)
PROC: 0W9G3ZZ Drainage of Peritoneal Cavity, Percutaneous Approach (ICD-10-PCS; 2016-12-01)
DX: K70.31 Alcoholic cirrhosis of liver with ascites (principal); E43 Unspecified severe protein-calorie malnutrition; I81 Portal vein thrombosis; N17.9 Acute kidney failure, unspecified; E87.1 Hypo-osmolality and hyponatremia; E87.3 Alkalosis; K92.0 Hematemesis; Z66 Do not resuscitate; Z51.5 Encounter for palliative care; F10.10 Alcohol abuse, uncomplicated; J42 Unspecified chronic bronchitis; Z87.891 Personal history of nicotine dependence; E87.6 Hypokalemia; K72.90 Hepatic failure, unspecified without coma; E87.8 Other disorders of electrolyte and fluid balance, not elsewhere classified; D64.9 Anemia, unspecified; I10 Essential (primary) hypertension; K21.0 Gastro-esophageal reflux disease with esophagitis; K44.9 Diaphragmatic hernia without obstruction or gangrene
CPT/HCPCS: 99223-AI; 99232-AI; 99233-AI; 99239; C1751; J0696; J1644; J1940; J2270; J2405; J2550; J2704; J2765; J3430; J3480; J7030